=== PATIENT | male | born 1950 | race Caucasian/White ===

== ENCOUNTER 2017-04-10 23:02 | Inpatient (IN) ==
--- NOTE | 2017-04-11 02:32 | Internal Med History&Physical ---
Date of Encounter: 04/11/17 Time of Encounter: 02:30 Assessment and Plan (1) TIA (transient ischemic attack) Current visit: No Status: Acute Right hand and leg numbness, improved with remnant finger and foot numbness CT head: no acute stroke Off of Eliquis due to recurrentbleeding from nephrostomy tube and is high risk of CVA due to paroxysmal a-fib, age, dm BP was 181/100 initially now down to 139/87 (could be high due to TIA initially) - Neurology consult - MRI brain - TTE r/o LA appendage thrombus, bubble study; if positive, will change the risk vs benefit of anticoagulation - Carotid Dupplex - telemetry - cont asa, statin Qualifiers: Transient cerebral ischemia type: unspecified Qualified Code(s): G45.9 - Transient cerebral ischemic attack, unspecified (2) KATIE (acute kidney injury) Current visit: Yes Status: Acute Cr 2.86, with acidosis baseline 1.8-2.1 on unknown antibiotic starting with 'B', could he be on Bactrim causing increase in creatinine? 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 Chronic kidney disease stage: stage 3 (moderate) Qualified Code(s): E11.22 - Type 2 diabetes mellitus with diabetic chronic kidney disease; N18.3 - Chronic kidney disease, stage 3 (moderate); Z79.4 - alf (current) use of insulin (5) Abscess of neck Current visit: No Status: Acute MRSA screen Clindamycin PO Local wound care (6) Essential hypertension Current visit: No Status: Acute cont metoprolol (7) Leukocytosis Current visit: Yes Status: Acute could be reactive or due to neck abscess - clindamycin PO for now Qualifiers: Leukocytosis type: unspecified Qualified Code(s): D72.829 - Elevated white blood cell count, unspecified Internal Medicine - H&P: HPI Chief complaint: right sided weakness Admitted From: Emergency Dept ([facility]) Plans for Post Hospital Care: Home History of present illness: 67M with HTN, CAD, pacer, DM, pA-fib (No longer on Eliquis due to bleeding from nephrostomy tube), CKD (baseline Cr 1.8-2.1), bladder cancer s/p surgery and current left sided nephrostomy tube due to obstruction presented to ED due to right hand and right foot numbness which started on 04/10 at 5:00 am. In ED, his symptoms improved, but did not resolve completely. A CT head was reported negative for acute abnormality. He was transferred to [facility] for further evaluation. Neck abscess, on oral and topical antibiotics, could have started from CPAP collar. A 10-point ROS is otherwise negative fr headache, dizziness, flu like symptoms, eye or ear symptoms, chest pain, dyspnea, n, v, abd pain, d,c, dysuria or other symptoms. Past Med Surg Social Fam HX - Past Medical History Medical history: arthritis, cancer, coronary artery disease, diabetes, hyperlipidemia, hypertension, myocardial infarction, syncope Psychiatric history: no psych history - Past Surgical History Surgical History: pacemaker/AICD - Social History Smoking Status: Former smoker Smokeless Tobacco Status: No Alcohol use: none Drug use: none - Family History Brother Hx Family Cancer: Yes Mother Adopted: Yes Family Member Ethnicity: Non- Living Status: Hx Family Cardiac Disorders: Yes Hx Family Respiratory Disorders: No Hx Family Cancer: No Hx Family GI Disorders: No Hx Family Endocrine Disorder: Yes (DM) Hx Family Neuromuscular Disorders: No Hx Family Neurologic Disorders: No Hx Family HEENT Disorders: Yes (Cataracts) Hx Family Autoimmune Disorders: No Internal Medicine - H&P: Meds Albuterol Sulfate [Albuterol Inhaler] 2 puff IH Q4-6H PRN 12/28/15 [History] Cetirizine HCl [Zyrtec] 10 mg PO HS 12/28/15 [History] Gemfibrozil [Lopid] 600 mg PO BIDWM 12/28/15 [History] Linagliptin [Tradjenta] 5 mg PO DAILY 12/28/15 [History] Ubidecarenone [Coq10] 100 mg PO DAILY 12/28/15 [History] Aspirin [Lo-Dose Aspirin EC] 81 mg PO DAILY 02/12/16 [History] Nitroglycerin [Nitrostat] 0.4 mg SL PRN PRN MDD 3 tabs 02/12/16 [History] Insulin Glargine,Hum.rec.anlog [Lantus Solostar] 26 unit SQ HS 04/09/17 [History ] Magnesium Oxide [Magnesium] 300 mg PO DAILY 04/09/17 [History] Sodium Bicarbonate 650 mg PO DAILY 04/09/17 [History] Metoprolol Succinate 50 mg PO DAILY 04/10/17 [History] Polytrim Opth Drops 1 drop RIGHT EYE PRN PRN 04/10/17 [History] Rosuvastatin Calcium [Crestor] 5 mg PO DAILY 04/10/17 [History] Vit A/C/E AC/Znox/Cupric Oxide [Eye Vitamin-Minerals Tablet] 1 tab PO DAILY [History] 3 Allergy/AdvReac Type Severity Reaction Status Date / Time Ether Allergy Nausea Verified 04/10/17 21:14 All Systems PM: A 10-system review of systems was performed and is negative for pertinent findings except as documented above in the HPI. - Constitutional Vitals: Temp Pulse Resp BP Pulse Ox 98.5 F 81 17 139/87 96 04/11/17 01:07 04/11/17 01:07 04/11/17 01:07 04/11/17 01:07 04/11/17 01:07 General appearance: Present: A&O X 3, pleasant, no acute distress - Head Head exam: Present: atraumatic - Eye Eye exam: Present: normal appearance, PERRL, sclera anicteric - ENT ENT exam: Present: mucous membranes moist, normal exam - Neck Neck exam general surgery: Present: supple (left sided wound). Absent: nuchal rigidity - Respiratory Respiratory exam: Present: CTAB. Absent: rales, rhonchi, wheezes - Cardiovascular Cardiovascular exam: Present: +S1, +S2. Absent: diastolic murmur, systolic murmur - GI/Abdominal GI/Abdominal exam: Present: soft. Absent: guarding, rebound, rigid - Additional comments: left sided nephrostomy tube with clear urine - Extremities Exam Extremities exam: Present: normal inspection, radial pulses palpable and symmetrical. Absent: pedal edema - Back Exam Back exam: Absent: CVA tenderness (L), CVA tenderness (R) - Neurological Exam Neurological exam: Present: CN II-XII intact, oriented X3. Absent: motor sensory deficit, facial droop, speech deficit Additional comments: babinski bilaterally downgoing - Psychiatric Psychiatric exam: Present: normal mood, suicidal ideation - Skin Skin exam: Present: normal color. Absent: rash - Expanded Skin Exam Type of lesion: Present: abscess (left neck)
[2017-04-11] MEDS ORDERED: Dextrose Gel 15 GM PO PRN ×2 (03:49)
[2017-04-11] MEDS ORDERED: *HR* Dextrose 50 % in Water (Syg) 50 ML SYRINGE IVP PRN (03:49)
[2017-04-11] MEDS ORDERED: Naloxone 0.4 MG/ML INJ IVP PRN (03:49)
[2017-04-11] MEDS ORDERED: D5% in Water 1,000 ML IVC PRN (03:49)
[2017-04-11] MEDS ORDERED: Acetaminophen 325 MG TABLET PO PRN (03:49)
[2017-04-11] MEDS ORDERED: Insulin DETEMIR 100 UNIT/ML X5UNITS SQ SCH ×2 (04:00→21:00)
[2017-04-11] MEDS ORDERED: 0.9 % Sodium Chloride 1,000 ML IVC SCH (04:00)
[2017-04-11 04:39] LABS: Basophils % 0.3 %; Eosinophils # 0.3 K/mcL (0.0-0.6); Hematocrit 29.7 % (37.5-50.1); Hemoglobin 9.7 g/dL (12.9-16.9); Immature Granulocytes % 0.4 % (0-4); Lymphocytes # 1.3 K/mcL (0.6-4.6); Mean Corpuscular HGB Conc 32.7 g/dL (31.6-35.5); Mean Corpuscular Hemoglobin 28.4 pg (28.0-33.3); Mean Corpuscular Volume 86.8 fL (83.0-100.0); Mean Platelet Volume 10.7 fL (9.4-12.4); Monocytes # 0.9 K/mcL (0.0-1.3); Monocytes % 6.9 %; Neutrophils # 10.1 K/mcL (1.6-8.9); Platelet Count 272 K/mcL (140-400); Red Blood Count 3.42 M/mcL (4.19-5.50); Segmented Neutrophils % 80.4 %
[2017-04-11 04:52] LABS: Calcium 9.7 mg/dL (8.6-10.8); Magnesium 1.8 mg/dL (1.6-2.6); Potassium 3.7 mEq/L (3.5-4.5)
[2017-04-11] MEDS: *HR* Heparin 5,000 UNIT/ML VIAL SQ SCH ×2 (05:05→16:52)
[2017-04-11 05:16] LABS: Hemoglobin A1C 11.2 %
[2017-04-11] MEDS ORDERED: Aspirin 81 MG TAB.CHEW PO SCH (09:00)
[2017-04-11] MEDS: Insulin LISPRO 300 UNITS/3 ML VIAL SQ SCH ×5 (09:38→16:53)
--- NOTE | 2017-04-11 16:02 | Neurology - Consult Note ---
Date of Encounter: 04/11/17 Assessment and Plan (1) TIA (transient ischemic attack) Current Visit: No Status: Acute awaits MRI , need stroke work up, including MRI , ECHO and CAROTID, at the same time if NO ACTIVE BLEEDING may need to be back on anticoagulation as with A fib certainly high risk of stroke. will follow Qualifiers: Transient cerebral ischemia type: unspecified Qualified Code(s): G45.9 - Transient cerebral ischemic attack, unspecified History of Present Illness HPI: Mr. Hdz is a 67 year old male with HTN, CAD, pacer, DM, pA-fib (No longer on Eliquis due to bleeding from nephrostomy tube), CKD (baseline Cr 1.8-2.1), bladder cancer s/p surgery and current left sided nephrostomy tube due to obstruction presented to ED due to right hand and right foot numbness which started on 04/10 at 5:00 am. In ED, his symptoms improved, but did not resolve completely. A CT head was reported negative for acute abnormality. He was transferred to [facility] for further evaluation. Past Med Surg Social Fam HX - Past Medical History Medical history: arthritis, cancer, coronary artery disease, diabetes, hyperlipidemia, hypertension, myocardial infarction, syncope Psychiatric history: no psych history - Past Surgical History Surgical History: pacemaker/AICD - Social History Smoking Status: Former smoker Smokeless Tobacco Status: No Alcohol use: none Drug use: none - Family History Brother Hx Family Cancer: Yes Mother Adopted: Yes Family Member Ethnicity: Non- Living Status: Hx Family Cardiac Disorders: Yes Hx Family Respiratory Disorders: No Hx Family Cancer: No Hx Family GI Disorders: No Hx Family Endocrine Disorder: Yes (DM) Hx Family Neuromuscular Disorders: No Hx Family Neurologic Disorders: No Hx Family HEENT Disorders: Yes (Cataracts) Hx Family Autoimmune Disorders: No Medications and Allergies Albuterol Sulfate [Albuterol Inhaler] 2 puff IH Q4-6H PRN 12/28/15 [History] Cetirizine HCl [Zyrtec] 10 mg PO HS 12/28/15 [History] Gemfibrozil [Lopid] 600 mg PO BIDWM 12/28/15 [History] Linagliptin [Tradjenta] 5 mg PO DAILY 12/28/15 [History] Ubidecarenone [Coq10] 100 mg PO DAILY 12/28/15 [History] Aspirin [Lo-Dose Aspirin EC] 81 mg PO DAILY 02/12/16 [History] Nitroglycerin [Nitrostat] 0.4 mg SL PRN PRN MDD 3 tabs 02/12/16 [History] Insulin Glargine,Hum.rec.anlog [Lantus Solostar] 26 unit SQ HS 04/09/17 [History ] Magnesium Oxide [Magnesium] 300 mg PO DAILY 04/09/17 [History] Sodium Bicarbonate 650 mg PO DAILY 04/09/17 [History] Metoprolol Succinate 50 mg PO DAILY 04/10/17 [History] Rosuvastatin Calcium [Crestor] 5 mg PO DAILY 04/10/17 [History] Vit A/C/E AC/Znox/Cupric Oxide [Eye Vitamin-Minerals Tablet] 1 tab PO DAILY [History] Ferrous Sulfate [Iron] 325 mg PO DAILY 04/11/17 [History] Grape Seed Extract [Grape Seed] 50 mg PO DAILY 04/11/17 [History] Metformin HCl [Glucophage] 1,000 mg PO BID 04/11/17 [History] 3 Allergy/AdvReac Type Severity Reaction Status Date / Time Ether Allergy Nausea Verified 04/10/17 21:14 All Systems: A 10-system review of systems was performed and is negative for pertinent findings except as documented above in the HPI. Physical Examination - Vital Signs Vital Signs: Initial Vital Signs Temp Pulse Resp BP Pulse Ox 98.5 F 81 17 139/87 96 04/11/17 01:07 04/11/17 01:07 04/11/17 01:07 04/11/17 01:07 04/11/17 01:07 Results - Laboratory Findings CBC and BMP: 04/11/17 04:15 04/11/17 04:15 Abnormal lab findings: Abnormal lab results WBC 12.6 K/mcL (4.3-11.1) H 04/11/17 04:15 RBC 3.42 M/mcL (4.19-5.50) L 04/11/17 04:15 Hgb 9.7 g/dL (12.9-16.9) L 04/11/17 04:15 Hct 29.7 % (37.5-50.1) L 04/11/17 04:15 Neutrophils # 10.1 K/mcL (1.6-8.9) H 04/11/17 04:15 Sodium 135 mEq/L (136-145) L 04/11/17 04:15 Carbon Dioxide 17 mEq/L (19-29) L 04/11/17 04:15 BUN 56 mg/dL (8-26) H 04/11/17 04:15 Creatinine 2.58 mg/dL (0.72-1.25) H 04/11/17 04:15 Est GFR ( Amer) 30 (> 60) L 04/11/17 04:15 Est GFR (Non-Af Amer) 25 (> 60) L 04/11/17 04:15 Glucose 303 mg/dL (70-99) H 04/11/17 04:15 POC Glucose 400 (58-89) H 04/11/17 09:22 Hemoglobin A1c 11.2 % (-5.6) H 04/11/17 04:15 Calculated Osmolality 307 (280-300) H 04/11/17 04:15 Consult Discharge Plan - Plan Referrals: Skip Abel CNP [Primary Care Provider] - 04/15/17 1:00 pm
--- NOTE | 2017-04-11 17:49 | Internal Med Progress Note ---
Date of Encounter: 04/11/17 Time of Encounter: 17:43 - Subjective Interval history: Pt. states that he has had a sore in his neck in the back for a week. He started experiencing numbness in his right arm and leg since yesterday morning at 5 AM. He denies any fever or chills. He does report pain in the back of his neck. Patient admitted early today and suspicion of acute stroke. The patient had an MRI today. MRI did not reveal any stroke. On exam, patient has 10 x 8 cm indurated area on the left side of the neck posteriorly below the occipital region that is tender to palpation. There is an opening in the middle that is draining purulent secretions. Power 5/5 all over. Sensations intact. No focal neurological deficits. Assessment/plan: 1. Neck abscess-very low suspicion for epidural abscess as the patient does not have fever or chills and does not have any neurological deficits. Unable to obtain MRI of the C-spine today due to his pacemaker. Will obtain CT scan of the neck soft tissues without contrast given his chronic kidney disease stage III. Will request surgical consult for drainage of the same. We will change the patient from by mouth clindamycin to intravenous linezolid due to his renal function to avoid further deterioration with vancomycin. Patient is height is due to risk of sepsis and septic shock and risk of epidural abscess. Neurology on board. Will follow further recommendations from neurology whether the patient requires an MRI of the C-spine. 2. Diabetes mellitus type 2 completed by chronic kidney disease stage III on home insulin therapy-continues current dose of insulin and sliding scale. Patient's kidney follow-up is at [facility]. 3. Coronary artery disease status post stent-continue current medications of aspirin. Continue statin and beta castro. 4. Atrial fibrillation-not on anticoagulation due to multiple episodes of bleeding into his nephrostomy tube causing clots and worsening renal function. - Constitutional Vitals: Temp Pulse Resp BP Pulse Ox 99.2 F 86 16 144/79 97 04/11/17 16:23 04/11/17 16:23 04/11/17 16:23 04/11/17 16:23 04/11/17 16:23 General appearance: Present: A&O X 3, pleasant, no acute distress Internal Medicine: Result - Labs CBC & Chem 7: 04/11/17 04:15 04/11/17 04:15 Labs: Short CBC 04/11/17 Range/Units 04:15 WBC 12.6 H (4.3-11.1) K/mcL Hgb 9.7 L (12.9-16.9) g/dL Hct 29.7 L (37.5-50.1) % Plt Count 272 (140-400) K/mcL Neutrophils # 10.1 H (1.6-8.9) K/mcL BMP 04/11/17 04:15 Sodium 135 L Potassium 3.7 Chloride 108 Carbon Dioxide 17 L BUN 56 H Creatinine 2.58 H Glucose 303 H Calcium 9.7 - Impressions Impressions Brain MRI 04/11/17 04:02 IMPRESSION: 1. No acute intracranial abnormality. No acute infarct. 2. Global parenchymal volume loss with chronic microvascular ischemic change. 3. Chronic lacunar infarct within the right cerebellum. 4. Trace right mastoid effusion. D/ / Viet Rodriguez MD / Viet Rodriguez MD Interpreting Provider: Viet Rodriguez MD Retroperitoneum Ultrasound 04/11/17 15:00 IMPRESSION: Nephrostomy tube in place on the left. No evidence for hydronephrosis. D/ / 04/11/2017 17:35:33 Mustapha Andrade MD / earlisa Interpreting Provider: Mustapha Andrade MD Consult Discharge Plan - Plan Referrals: Skip Abel, GABRIELE [Primary Care Provider] - 04/15/17 1:00 pm
--- NOTE | 2017-04-11 18:34 | Discharge Summary ---
Date of Encounter: 04/11/17 Time of Encounter: 17:43 - Discharge Diagnosis (1) Abscess in epidural space of cervical spine Priority: Primary Status: Suspected (2) CAD (coronary artery disease) Priority: Secondary Status: Chronic Qualifiers: Coronary Disease-Associated Artery/Lesion type: [place] artery [place] vs. 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 Chronic kidney disease stage: stage 3 (moderate) Qualified Code(s): E11.22 - Type 2 diabetes mellitus with diabetic chronic kidney disease; N18.3 - Chronic kidney disease, stage 3 (moderate); Z79.4 - termite control representative (current) use of insulin (5) Essential hypertension Priority: Secondary Status: Chronic - Discharge Medications Home Medications: Albuterol Sulfate [Albuterol Inhaler] 2 puff IH Q4-6H PRN 12/28/15 [History] Cetirizine HCl [Zyrtec] 10 mg PO HS 12/28/15 [History] Gemfibrozil [Lopid] 600 mg PO BIDWM 12/28/15 [History] Linagliptin [Tradjenta] 5 mg PO DAILY 12/28/15 [History] Ubidecarenone [Coq10] 100 mg PO DAILY 12/28/15 [History] Aspirin [Lo-Dose Aspirin EC] 81 mg PO DAILY 02/12/16 [History] Nitroglycerin [Nitrostat] 0.4 mg SL PRN PRN MDD 3 tabs 02/12/16 [History] Insulin Glargine,Hum.rec.anlog [Lantus Solostar] 26 unit SQ HS 04/09/17 [History ] Magnesium Oxide [Magnesium] 300 mg PO DAILY 04/09/17 [History] Sodium Bicarbonate 650 mg PO DAILY 04/09/17 [History] Metoprolol Succinate 50 mg PO DAILY 04/10/17 [History] Rosuvastatin Calcium [Crestor] 5 mg PO DAILY 04/10/17 [History] Vit A/C/E AC/Znox/Cupric Oxide [Eye Vitamin-Minerals Tablet] 1 tab PO DAILY [History] Ferrous Sulfate [Iron] 325 mg PO DAILY 04/11/17 [History] Grape Seed Extract [Grape Seed] 50 mg PO DAILY 04/11/17 [History] Metformin HCl [Glucophage] 1,000 mg PO BID 04/11/17 [History] Allergies/Adverse Reactions: 3 Allergy/AdvReac Type Severity Reaction Status Date / Time Ether Allergy Nausea Verified 04/10/17 21:14 Procedures/tests Complete & Pending: Procedures Performed prior 72 hours Category Date Time Status CT soft tissue neck wo con [CT] Stat Cat Scan 04/11/17 17:38 Ordered Retroperitoneal Ultrasound - Complete [US Exams 04/11/17 15:00 Draft retroperitoneal comp] [US] Routine MR head/brain wo con [MR] Routine MRI 04/11/17 04:02 Completed Date of admission: 04/11/17 03:49 Primary care physician: Skip Abel CNP Consults: 04/11/17 03:49 Consult to Neurology [CONS] Routine Consulting Provider: Neurology [facility] Reason for Consult: right leg and arm numbness, r/o stroke Call Completed: No Consult to Occupational Therapy [CONS] Routine Comment: Evaluate, develop and implement POC Reason for Consult: suspected stroke Consult to Physical Therapy [CONS] Routine Comment: Evaluate, develop and implement POC Reason for Consult: suspected stroke 04/11/17 05:28 Consult to Wound Care [CONS] Routine Reason for Consult: posterior neck abscess. Call Completed: No 04/11/17 17:38 Consult to Surgery [CONS] Routine Consulting Provider: Keri Shafer Reason for Consult: Neck abscess Call Completed: Yes Discharging clinician: Andrey Givens Anticipated date of discharge: 04/11/17 - Patient Status Disposition: Transfer Critical Access Hosp Condition: Fair Functional capacity at discharge: uses cane/walker Overall status at discharge: patient is not back to baseline - Discharge Instructions Follow Up With: Skip Abel CNP [Primary Care Provider] - 04/15/17 1:00 pm - Diet and Activity Activity: other (as instructed in [facility]) Diet: diabetic diet, low fat, low cholesterol, low salt diet Hospital course: Mr. Hdz is a 67 year old male who was admitted early this morning after he presented to the emergency room due to tingling and numbness in his right arm and right leg that started yesterday morning at 5 AM. The patient states that he has also had an infection in the back of his neck over the past one week. He attributes this to a new BiPAP mask and straps which have been rubbing against the back of his neck causing irritation. He states that he went to an emergency room 4-5 days ago at which time samples were obtained from the back of his neck and cultured. He was placed on by mouth Bactrim and sent home. However, due to his new onset tingling and numbness in the right arm and leg, he was concerned and presented to the emergency room today. He was admitted with a suspicion of acute CVA as he has a history of paroxysmal atrial fibrillation and is not on any anticoagulation due to history of bleeding episodes from his left nephrostomy tube which was placed by Dr. Arceo at [facility]. Neurology consult was also requested. The patient underwent an MRI of the brain which did not reveal any ischemic stroke. He also was found to have elevated creatinine. He underwent a retroperitoneal ultrasound which did not reveal any obstruction of his nephrostomy tube or his ureter. As the patient was away for testing most of the day, he was evaluated late in the day by myself and by the neurologist. The size of the neck abscess was about 10 cm in diameter over the suboccipital portion of the neck. Given his neurological symptoms and the location of the abscess, there was a suspicion for possible epidural abscess of the cervical spine which could be contemplating to his neurological symptoms. Hence, neurology has recommended that the patient be transferred to [facility] for higher level of care as there is no neurosurgical services available at [facility]. He is on IV zyvox instead of vancomycin due to his renal function. [facility] transfer center was contacted. The patient has been accepted by [facility]. Accepting physician is Dr. Susie Figueredo He will be transferred to [facility] pending bed availability. Due to his pacemaker, the patient is unable to get a stat MRI of the cervical spine tonight. - Time Spent with Patient Total time spent providing and/or coordinating discharge services: Greater than 30 minutes (50 min) - Constitutional Vitals: Temp Pulse Resp BP Pulse Ox 99.2 F 86 16 144/79 97 04/11/17 16:23 04/11/17 16:23 04/11/17 16:23 04/11/17 16:23 04/11/17 16:23 Exam: Gen.: Lying in bed. Mild distress. Chest: Clear to auscultation bilaterally. No adventitious sounds present. CVS: First and second heart sounds present. No murmurs, rubs or gallops. Skin: 10 cm diameter over the suboccipital region of his neck that is tender to palpation and has purulent drainage.
[2017-04-11 20:52] VITALS: BP 144/88
[2017-04-11] MEDS ORDERED: Insulin LISPRO 300 UNITS/3 ML VIAL SQ SCH (21:00)
== END 2017-04-11 22:05 | disposition critical access hospital (66) | DRG 95 ==
LOC: 2NENU
PROVIDERS: ADMIT Internal Medicine; ATTEND Internal Medicine Sleep Medicine

== ENCOUNTER 2021-01-26 17:34 | Observation (INO) ==
[2021-01-26] MEDS ORDERED: Naloxone 0.4 MG/ML INJ IVP PRN (20:37)
[2021-01-26] MEDS ORDERED: Melatonin 3 MG TABLET PO PRN (20:37)
[2021-01-26] MEDS ORDERED: Ondansetron 4 MG/2 ML VIAL IVP PRN (20:37)
[2021-01-26] MEDS ORDERED: 0.9 % Sodium Chloride 1,000 ML IVC SCH (20:45)
[2021-01-26] MEDS ORDERED: cefTRIAXone 1,000 MG in Water for inj. (sterile) 10 ML IVPB ONE (21:00)
[2021-01-26] MEDS ORDERED: D5% in Water 1,000 ML IVC PRN (21:07)
[2021-01-26] MEDS ORDERED: *HR* Dextrose 50 % in Water (Vial) 50 ML VIAL IVP PRN (21:07)
[2021-01-26] MEDS ORDERED: Dextrose Gel 15 GM/37.5 ML TUBE PO PRN ×2 (21:07)
[2021-01-27] MEDS: Insulin LISPRO 300 UNITS/3 ML VIAL SUBQ SCH ×4 (00:25→16:43)
[2021-01-27 05:31] LABS: Basophils # 0.1 K/mcL (0.0-0.2); Basophils % 0.3 %; Eosinophils % 0.1 %; Hematocrit 33.2 % (37.5-50.1); Hemoglobin 10.4 g/dL (12.9-16.9); Immature Granulocytes % 0.6 % (0-4); Lymphocytes # 1.3 K/mcL (0.6-4.6); Lymphocytes % 7.5 %; Mean Corpuscular HGB Conc 31.3 g/dL (31.6-35.5); Mean Corpuscular Hemoglobin 29.1 pg (28.0-33.3); Mean Corpuscular Volume 92.7 fL (83.0-100.0); Mean Platelet Volume 10.6 fL (9.4-12.4); Monocytes # 0.8 K/mcL (0.0-1.3); Monocytes % 4.3 %; Neutrophils # 15.3 K/mcL (1.6-8.9); Platelet Count 175 K/mcL (140-400); Red Blood Count 3.58 M/mcL (4.19-5.50); Red Cell Distribution Width 16.7 % (11.5-14.5); Segmented Neutrophils % 87.2 %; White Blood Count 17.5 K/mcL (4.3-11.1)
[2021-01-27 05:38] LABS: INR 1.5; Prothrombin Time 16.6 Seconds (9.4-12.1)
[2021-01-27 05:41] LABS: Activated Partial Thrombo Time 28.6 Seconds (26.0-36.0)
[2021-01-27 05:51] LABS: Albumin 3.7 g/dL (3.5-5.7); Albumin/Globulin Ratio 0.9 (1.1-2.2); Bilirubin,Total 0.3 mg/dL (0.3-1.0); Calcium 8.7 mg/dL (8.6-10.3); Globulin 4.1 g/dL (2.4-3.5); Potassium 3.9 mEq/L (3.5-5.1); Total Protein 7.8 g/dL (6.4-8.9)
[2021-01-27 10:46] LABS: Bacteria,Urine Many per hpf (None-Few); Bilirubin,Urine Negative (Negative); Blood,Urine Large (Negative); Clarity,Urine Turbid (Clear); Color,Urine Brown (Yellow); Glucose,Urine (UA) Normal (Normal); Ketones,Urine Negative (Negative); Leukocyte Esterase,Urine Large (Negative); Mucus,Urine Many per lpf (None-Few); Nitrite,Urine Positive (Negative); PH,Urine 8.5 pH Units (5.0-8.0); Protein,Urine >=600 mg/dL (Neg-Trace); RBC,Urine TNTC per hpf (0-3); Specific Gravity,Urine 1.014 (1.010-1.025); Triple Phosphate Crystal,Urine Present per hpf; Urobilinogen,Urine Normal (Normal); WBC,Urine 30-50 per hpf (0-3)
[2021-01-27] MEDS ORDERED: 0.9 % Sodium Chloride 1,000 ML IVC SCH (14:30)
[2021-01-27] MEDS ORDERED: Lidocaine/EPI 1:100k 1% 50 ML VIAL ONE (14:34)
[2021-01-27] MEDS ORDERED: 0.9 % Sodium Chloride 500 ML ONE (14:34)
[2021-01-27] MEDS ORDERED: Isovue-300 50ML VIAL IVP ONE (15:44)
[2021-01-27] MEDS ORDERED: Aspirin Enteric Coated 81 MG Tablet PO SCH (17:00)
[2021-01-27] MEDS ORDERED: *HR* Amiodarone 200 MG TABLET PO SCH (17:00)
[2021-01-27] MEDS ORDERED: cefTRIAXone 2,000 MG in Water for inj. (sterile) 20 ML IVPB SCH (18:00)
[2021-01-27] MEDS ORDERED: Insulin DETEMIR 100 UNIT/ML X5UNITS SUBQ SCH (21:00)
[2021-01-27] MEDS ORDERED: NIFEdipine XL (24 HR) 30 MG TAB.ER.24 PO SCH (21:00)
[2021-01-27] MEDS ORDERED: Metoprolol XL (24 HR) Succ 50 MG TAB.ER.24H PO SCH (21:00)
[2021-01-27 21:22] VITALS: BP 161/80
[2021-01-28] MEDS ORDERED: Ascorbic Acid 500 MG TABLET PO SCH (09:00)
== END 2021-01-27 21:45 | disposition short-term general hospital (02) ==
LOC: 2ANU
PROVIDERS: ADMIT Internal Medicine; ATTEND Internal Medicine